=== PATIENT | male | born 2000 | race Caucasian/White ===

== ENCOUNTER → 2021-04-20 | Emergency (ER) | payer OTHER ==
[~2021-04-20] VITALS: Ht 180.3 cm; Wt 63.6 kg
[2021-04-20 13:21] VITALS: BP 125/80
--- NOTE | 2021-04-20 18:56 | NUR ---
Pt. not in lobby. No number on file to call.
== END | disposition left against medical advice (07) ==
LOC: ER 13:17
DX: F19.10 Other psychoactive substance abuse, uncomplicated (principal); Z53.21 Procedure and treatment not carried out due to patient leaving prior to being seen by health care provider

== ENCOUNTER 2022-08-29 11:23 | Emergency (ER) | payer MEDICAID, OTHER ==
[~2022-08-29] VITALS: Ht 167.6 cm; Wt 75.0 kg
[2022-08-29 11:30] VITALS: BP 126/74
== END 2022-08-29 11:50 ==
LOC: ER 11:24
DX: Z04.1 Encounter for examination and observation following transport accident (principal); S46.911A Strain of unspecified muscle, fascia and tendon at shoulder and upper arm level, right arm, initial encounter; M25.521 Pain in right elbow; V89.2XXA Person injured in unspecified motor-vehicle accident, traffic, initial encounter; Y93.89 Activity, other specified; Y92.89 Other specified places as the place of occurrence of the external cause; Y99.8 Other external cause status
CPT/HCPCS: 73080; 99283

== ENCOUNTER 2023-12-22 20:55 | Emergency (ER) | payer MEDICAID ==
[~2023-12-22] VITALS: Ht 180.3 cm; Wt 70.9 kg
[2023-12-22 21:03] VITALS: BP 114/77; PULSE 87; RESP 16; TEMP 98; O2SAT 97
[2023-12-22] MEDS ORDERED: NICO-631 TOP (21:51)
== END 2023-12-22 21:45 | disposition home or self-care (01) ==
LOC: ER 20:56
DX: F11.20 Opioid dependence, uncomplicated (principal)
CPT/HCPCS: 99282

== ENCOUNTER 2025-07-21 23:22 | Emergency (ER) | payer MEDICAID ==
[~2025-07-21 23:22] MED LIST: BUPR1FIL3 SL; LACT1CAP26 PO; LEVO750T68 PO
[2025-07-21 23:42] VITALS: TEMP 96.8
--- NOTE | 2025-07-22 00:02 | RADIOLOGY REPORT ---
CHEST RADIOGRAPH Indication: shortness of breath Technique: Frontal and lateral view of the chest was obtained Comparison: None FINDINGS: Lines and Tubes: None Lungs: Grossly stable appearing lateral left lower lobe consolidation. Pleura: No effusion. No pneumothorax. Cardiomediastinal contours: Unremarkable Bones: Unremarkable IMPRESSION: 1. Stable lateral left lower lobe consolidation.
[2025-07-22 00:43] LABS: MEAN PLATELET VOLUME 7.5 FL (7.4-10.4); RED CELL DISTRIBUTION WIDTH 15.2 % (11.5-14.5)
--- NOTE | 2025-07-22 00:43 | Physician Documentation ---
History of Present Illness ~ Chief Complaint: Shortness of Breath Stated Complaint: LEFT SIDED OF BODY PAIN Time Seen by MD: 02:26 HPI This is a 24-year-old male who was recently diagnosed hospitalized for community-acquired pneumonia, patient reports after discharge he is continuing to have shortness of breath and left posterior chest wall pain with deep breathing and coughing. Patient reports no fevers. History as above. Patient is biggest concern is his pain in his not taking anything for the pain. Reports compliance with his Levaquin. Medication Reconciliation Allergies: Coded Allergies: No Known Allergies (Unverified , 07/21/25) Scheduled Buprenorphine Hcl/Naloxone Hcl (Suboxone 8 Mg-2 Mg Sl Film), 1 STRIP SL Q8H, (Reported) Lactobacillus Rhamnosus (Culturelle), 1 CAP PO BID Levofloxacin (Levofloxacin), 1 TAB PO DAILY Past Medical History Past Medical History: Asthma Past Surgical History: no surgical history Patient History: FH: diabetes mellitus (Mother had diabetes) Review of Systems ROS As stated above in the HPI, otherwise all systems are reviewed and negative. Physical Exam Vital Signs: Temperature: 96.8, Source: Temporal, Heart Rate: 80, Respiratory Rate: 15, BP: 107/56, Pulse Oximetry: 97 Physical Exam General: Patient is awake, alert, oriented x4 in no acute distress and well appearing.~ Head: Normocephalic and atraumatic. Eyes: Conjunctival normal. EOMI. PERRL. ENT: Mucous membranes moist. Neck: Supple, trachea is midline. Chest: Clear to auscultation bilaterally without rales, rhonchi, or wheezes. There is no accessory muscle use or retractions. Cardiac: RRR without murmurs, gallops, or rubs. Progress Results/Orders Results/Orders Orders - ULISES HORNER MD Chest,Two Views (07/21/25 23:44) Culture Blood (07/21/25 23:44) Saline Lock (07/21/25 23:44) Oxygen (07/21/25 23:44) Completed Orders - ULISES HORNER MD Chest,Two Views (07/21/25 23:44) Cbc/Diff (07/21/25 23:44) BMP (07/21/25 23:44) PBNP (07/21/25 23:44) Lacticsepsis (07/21/25 23:44) Vital Signs 07/21/25 07/22/25 23:42 02:28 Temp 96.8 Pulse 80 Resp 15 16 B/P (MAP) 107/56 Pulse Ox 97 Laboratory Tests Test 07/22/25 00:17 White Blood Count 10.6 Red Blood Count 5.08 Hemoglobin 14.0 Hematocrit 41.2 L Mean Corpuscular Volume 81.2 Mean Corpuscular Hemoglobin 27.6 Mean Corpuscular Hemoglobin Concent 34.0 Red Cell Distribution Width 15.2 H Platelet Count 331 Mean Platelet Volume 7.5 Neutrophils (%) (Auto) 69.1 Lymphocytes (%) (Auto) 17.6 L Monocytes (%) (Auto) 10.8 Eosinophils (%) (Auto) 2.4 Basophils (%) (Auto) 0.1 Neutrophils # (Auto) 7.3 Lymphocytes # (Auto) 1.9 Monocytes # (Auto) 1.1 H Eosinophils # (Auto) 0.3 Basophils # (Auto) 0.0 CBC Comment Sodium Level 139 Potassium Level 4.0 Chloride Level 101 Carbon Dioxide Level 29.9 Anion Gap 8 Blood Urea Nitrogen 12 Creatinine 0.84 Estimated GFR/1.73 m2 > 90 BUN/Creatinine Ratio 14.3 Glucose Level 79 Lactic Acid Level 1.1 Calcium Level 9.2 Pro-B-Type Natriuretic Peptide 84 Albumin 3.4 Chemistry Comments Medical Decision Making Additional information obtaine: old records Findings Patient presents to the emergency room with left-sided chest pain that has well as cough. Differentials include but were not limited to pneumonia, worsening pneumonia, pleurisy, pulmonary embolism, aortic pathology therefore emergent labs and imaging indicated. Labs show patient's white blood cell count significantly improved. Patient has pneumonias known in his that has stable and not spreading. He continues to take his Levaquin. He is not having anything for pain and I will give him a prescription for both ibuprofen and Tylenol. ER precautions discussed regarding worsening of symptoms or fever. Heart Score: 0 Differential Dx:Considerations: Include: bronchitis Departure Disposition: HOME / SELF CARE / HOMELESS Impression: Primary Impression: Community acquired pneumonia Condition: Stable Discharge Instructions: Community-Acquired Pneumonia, Adult Additional Instructions: Ibuprofen and Tylenol may be taken together for pain. Return for worsening of symptoms or fevers. Finish all antibiotics. Referrals: NO PRIMARY CARE PROVIDER (PCP) Prescriptions Acetaminophen (Tylenol Extra Strength) 500 Mg Tablet 2 TAB PO Q6H PRN PRN for pain or fever for 3 Days, #30 TAB Prov: ULISES HORNER MD 07/22/25 Ibuprofen* (Motrin*) 400 Mg Tablet 800 MG PO Q8H, #30 TAB Prov: ULISES HORNER MD 07/22/25 Signature Scribe Signature: No scribe Attestation: The note accurately reflects work and decisions made by me.Ulises Horner MD 07/22/25 02:35 ELISABETH ALEXANDER Jul 22, 2025 00:43 ULISES HORNER MD Jul 22, 2025 02:35
[2025-07-22 01:09] LABS: CREATININE 0.84 MG/DL (0.60-1.10); PRO BRAIN NATRIURETIC PEPTIDE 84 PG/ML (0-125); TOTAL CARBON DIOXIDE 29.9 MMOL/L (24-32); eGFR > 90 ML/MIN
[2025-07-22 02:34] VITALS: BP 102/68; PULSE 88; RESP 16; O2SAT 99
[2025-07-22] MEDS ORDERED: ACET-1025 PO (02:35)
[2025-07-22] MEDS ORDERED: IBUP-1984 PO (02:35)
[2025-07-22] MEDS: ibuprofen tablet 400 MG TABLET PO ONE (02:39)
== END 2025-07-22 02:41 | disposition home or self-care (01) ==
LOC: ER 23:22
DX: J18.9 Pneumonia, unspecified organism (principal); J45.909 Unspecified asthma, uncomplicated; Z79.899 Other long term (current) drug therapy
CPT/HCPCS: 71046; 80048; 83605; 83880; 85025; 87040; 99284

== ENCOUNTER → 2025-08-10 | Emergency (ER) | payer MEDICAID ==
[~2025-08-10] VITALS: Ht 180.3 cm; Wt 66.0 kg
[~2025-08-10] MED LIST changes: +IBUP-1984 PO; -LEVO750T68 PO
--- NOTE | 2025-08-10 15:33 | Physician Documentation ---
History of Present Illness ~ Chief Complaint: Overdose Stated Complaint: OD Time Seen by MD: 15:16 HPI [age] year male brought to the emergency department by EMS for evaluation for suspected opiate overdose. Patient is a resident of a local treatment facility for which he has been a resident for three months. He has been receiving Suboxone 3 times a day. Today was picked up by his family and while in the car became unresponsive. Family return back to the treatment facility where they administer two 4 mg doses of Narcan intranasally with the patient awoke. There was no reported seizure activity or injury. Patient in the emergency department while alert and oriented. He is not recall the event. States he only received a drink today from his roommate. Denies diversion of opiates while in the facility. Medication Reconciliation Allergies: Coded Allergies: No Known Allergies (Unverified , 07/21/25) Scheduled Buprenorphine Hcl/Naloxone Hcl (Suboxone 8 Mg-2 Mg Sl Film), 1 STRIP SL Q8H, (Reported) Ibuprofen* (Motrin*), 800 MG PO Q8H Lactobacillus Rhamnosus (Culturelle), 1 CAP PO BID Past Medical History Past Medical History: Asthma Past Surgical History: no surgical history Patient History: FH: diabetes mellitus (Mother had diabetes) Review of Systems All Other Systems at this time: Reviewed and Negative Constitutional: Reports: see HPI Physical Exam Vital Signs: RN Vital Signs have been reviewed: Yes, Temperature: 98.8, Source: Temporal, Heart Rate: 105, Respiratory Rate: 14, BP: 120/78, Pulse Oximetry: 100, Weight: 66.000 Oxygen Flow Rate: 0 General Appearance: alert, WD/WN, no apparent distress Pupils/EOM/Fundus: PERRLA Head: normal inspection Neck: normal inspection Respiratory: lungs clear Chest: no accessory muscle use Cardiovascular: normal peripheral pulses Neurologic: oriented x4, cold roll catcher II-XII nml as tested Cerebellar function exam: normal Motor / Sensory: no motor deficit, no sensory deficit Appearance/Memory/Insight: appropriate appearance Behavior/Eye contact/Speech: cooperative, good eye contact, normal speech Thought/Hallucinations: normal thought pattern Skin: normal color Lymphatic: normal inspection Progress Results/Orders Results/Orders Orders - BHAVANA COBB PAC * Iv Access / Saline Lock * (08/10/25 16:33) Completed Orders - BHAVANA COBB PAC Drug Screen, Urine (08/10/25 15:54) Cbc/Diff (08/10/25 16:33) CMP (08/10/25 16:33) Naloxone 2mg/2ml Inj (Narcan 2mg/2ml Inj (08/10/25 17:31) Normal Saline 1000ml (0.9% Sodium Chlori (08/10/25 17:35) Vital Signs 08/10/25 08/10/25 08/10/25 08/10/25 15:12 16:56 16:57 18:28 Temp 98.8 98.8 98.8 Pulse 105 68 69 Resp 14 17 12 B/P (MAP) 120/78 100/60 (73) 106/61 (76) Pulse Ox 100 99 99 O2 Flow Rate 0 0 0 Laboratory Tests Test 08/10/25 16:52 08/10/25 17:55 White Blood Count 5.3 Red Blood Count 4.56 L Hemoglobin 12.3 L Hematocrit 36.6 L Mean Corpuscular Volume 80.3 Mean Corpuscular Hemoglobin 26.9 L Mean Corpuscular Hemoglobin Concent 33.5 Red Cell Distribution Width 15.6 H Platelet Count 221 Mean Platelet Volume 7.6 Neutrophils (%) (Auto) 65.1 Lymphocytes (%) (Auto) 20.6 L Monocytes (%) (Auto) 9.8 Eosinophils (%) (Auto) 4.2 Basophils (%) (Auto) 0.3 Neutrophils # (Auto) 3.4 Lymphocytes # (Auto) 1.1 Monocytes # (Auto) 0.5 Eosinophils # (Auto) 0.2 Basophils # (Auto) 0.0 CBC Comment Sodium Level 140 Potassium Level 3.5 Chloride Level 105 Carbon Dioxide Level 28.2 Anion Gap 7 L Blood Urea Nitrogen 10 Creatinine 0.86 Estimated GFR/1.73 m2 > 90 BUN/Creatinine Ratio 11.6 Glucose Level 86 Calcium Level 8.3 L Total Bilirubin 0.5 Aspartate Amino Transf (AST/SGOT) 10 Alanine Aminotransferase (ALT/SGPT) < 6 L Alkaline Phosphatase 87 Total Protein 7.3 Albumin 3.7 Globulin 3.6 Albumin/Globulin Ratio 1.0 L Chemistry Comments Urine Opiates Screen Negative Urine Methadone Screen Negative Urine Fentanyl Screen Positive H Urine Barbiturates Screen Negative Urine Phencyclidine Screen Negative Urine Amphetamines Screen Negative Urine Benzodiazepines Screen Negative Urine Cocaine Screen Negative Urine Cannabinoids Screen Negative Drug Screen Comment Medical Decision Making Additional information obtaine: N/A (EMS) Findings Examination & findings warrants ED evaluation for several hours to evaluate for further respiratory depression, other side effects such as nausea or vomiting diarrhea, anxiety and restlessness. Patient became somnolent requiring oxygen via nasal cannula 2 L. patient is easily arousable. Pending U tox and serology screening. Patient had change in pupil status. Administered 2 mg of Narcan for which patient became while oriented again. Urinalysis toxicology screening positive for fentanyl. Other labs all reassuring. Patient will eventually eloped from the emergency department. He was found to be waiting in the emergency department waiting room for which I approached him asked him to stay in the emergency department to complete evaluation for which he is denied. He is well oriented, signed against medical advice understanding risks alternatives and benefits to including . Grandmother is on the way to pick patient up. Differential Dx:Considerations: Include: Alcohol abuse, Anxiety, Bipolar disorder, Conversion disorder, Delirium, Depression, Drug Overdose-Accidental, Drug Overdose-Intentional, Encephalopathy, Hallucinations, Homicidal, Liver failure, Panic disorder, Personality disorder, Renal failure, Respiratory failur e, Schizophrenia, Substance abuse, Suicidal attempt, Suidical gesture, Other Departure Disposition: 07 LEFT AGAINST MEDICAL ADVICE Impression: Primary Impression: Use of nonprescription opiate drugs Referrals: NO PRIMARY CARE PROVIDER (PCP) Signature Scribe Signature: , Attestation: , BHAVANA COBB PAC Aug 10, 2025 15:33
[2025-08-10 17:03] LABS: MEAN PLATELET VOLUME 7.6 FL (7.4-10.4); RED CELL DISTRIBUTION WIDTH 15.6 % (11.5-14.5)
[2025-08-10 17:20] LABS: CREATININE 0.86 MG/DL (0.60-1.10); TOTAL CARBON DIOXIDE 28.2 MMOL/L (24-32); eCRCL 124 ML/MIN; eGFR > 90 ML/MIN
[2025-08-10] MEDS: naloxone 2mg/2ml inj IV STA (17:45)
[2025-08-10] MEDS: normal saline 1000ml 1,000 ML IV ONE (17:50)
[2025-08-10 18:28] VITALS: BP 106/61; PULSE 69; RESP 12; TEMP 98.8; O2SAT 99
[2025-08-10 18:49] LABS: URINE AMPHETAMINE SCREEN NEGATIVE (Neg); URINE BARBITUATE SCREEN NEGATIVE (Neg); URINE BENZODIAZEPINES SCREEN NEGATIVE (Neg); URINE CANNABINOID SCREEN NEGATIVE (Neg); URINE COCAINE SCREEN NEGATIVE (Neg); URINE METHADONE SCREEN NEGATIVE (Neg); URINE OPIATE SCREEN NEGATIVE (Neg); URINE PHENCYCLIDINE SCREEN NEGATIVE (Neg)
== END | disposition home or self-care (01) ==
LOC: ER 15:03
DX: Z00.00 Encounter for general adult medical examination without abnormal findings (principal); J45.909 Unspecified asthma, uncomplicated; Z79.899 Other long term (current) drug therapy
CPT/HCPCS: 36415; 80053; 80305; 85025; 96361; 96374; 99283; J2312; J7030; A4620